=== PATIENT | female | born 1940 | race Caucasian/White ===

== ENCOUNTER → 2016-12-09 | Outpatient (CLI) | payer MEDICARE, OTHER ==
[~2016-12-09] MED LIST: APRACLONIDINE 1% 0.1 ML OPH ONE; CAPT12.52 PO; CLON0.5T4 PO; OPHTHALMIC IRRIG SOLUTION 120 ML ONE; PHENYLephrine 10% 5 ML OPH ONE; PROPARACAINE 0.5% 15 ML OPH ONE; TROPICAMIDE 1% 3 ML OPH ONE
== END | disposition home or self-care (01) ==
LOC: RAD 09:45
PROVIDERS: ATTEND Ophthalmology
DX: H26.40 Unspecified secondary cataract (principal)
CPT/HCPCS: 66821